=== PATIENT | female | born 2000 | race African-American/Black ===

== ENCOUNTER 2022-01-15 19:19 | Emergency (ER) | payer OTHER ==
[~2022-01-15] VITALS: Ht 147.3 cm; Wt 59.0 kg
[2022-01-15 19:20] VITALS: BP 110/72
== END 2022-01-15 20:23 | disposition home or self-care (01) ==
LOC: ER 19:19
DX: S61.211A Laceration without foreign body of left index finger without damage to nail, initial encounter (principal); S61.011A Laceration without foreign body of right thumb without damage to nail, initial encounter; W26.0XXA Contact with knife, initial encounter; Y93.89 Activity, other specified; Y92.89 Other specified places as the place of occurrence of the external cause; Y99.8 Other external cause status